=== PATIENT | male | born 1955 | race Hispanic/Latino ===

== ENCOUNTER 2019-04-02 01:36 | Inpatient (IN) | payer OTHER ==
[2019-04-02 02:39] LABS: #Eosinphils 0.3 thou/uL (0.0-0.7); #Lymphocytes 2.4 thou/uL (1.20-3.40); #Monocytes 0.6 thou/uL (0.11-0.59); #Neutrophils 3.7 thou/uL (1.40-6.50); %Basophils 0.2 % (0.0-1.0); %Eosinophils 4.9 % (0.0-10.0); %Lymphocytes 33.9 % (21.0-51.0); %Neutrophils 52.1 % (42.0-75.0); Hemoglobin 13.1 g/dL (14.0-18.0); Mean Corpuscular Hemoglobin 26.7 pg (27.0-31.0); Mean Corpuscular Volume 80.9 fL (78.0-98.0); Mean Platelet Volume 8.2 fL (7.4-10.4); Platelet Count 211 thou/uL (130-400); RBC Distribution Width 13.7 % (11.5-14.5); Red Blood Cell (RBC) Count 4.89 mill/uL (4.70-6.10); White Blood Cell (WBC) Count 7.1 thou/uL (4.8-10.8)
[2019-04-02 03:00] LABS: CRP (Inflammatory) 2.23 mg/dL (= or < 0.5)
[2019-04-02 03:01] LABS: ALT (SGPT) 28 U/L (8-55); AST (SGOT) 19 U/L (5-34); Albumin 3.8 g/dL (3.4-4.8); Alkaline Phosphatase 107 U/L (40-110); Anion Gap 14 mmol/L (10-20); BUN (Urea Nitrogen) 14 mg/dL (8.4-25.7); Bilirubin, Total 0.3 mg/dL (0.2-1.2); Calc. Creatinine Clearance 0 mL/min (70-130); Calcium 9.5 mg/dL (7.8-10.44); Carbon Dioxide 24 mmol/L (23-31); Chloride 102 mmol/L (98-107); Estimated GFR-MDRD 83; Globulin 4.3 g/dL (2.4-3.5); Glucose 221 mg/dL (80-115); Potassium 3.7 mmol/L (3.5-5.1); Protein, Total 8.1 g/dL (5.8-8.1); Sodium 136 mmol/L (136-145)
[2019-04-02] MEDS ORDERED: Cefepime 2 GM VIAL ONE (04:56)
[2019-04-02 05:16] LABS: Bilirubin Negative (Negative); Blood, Urine 1+ (Negative); Clarity Extra Turbid (Clear); Glucose, Urine (Dipstick) Greater than 1000 mg/dL (Negative); Leukocyte 500 Leu/uL (Negative); Nitrite 2+ (Negative); Protein, Urine (Dipstick) 50 mg/dL (Neg-Trace); Urobilinogen Normal mg/dL (Less than 2)
[2019-04-02 05:17] LABS: Bacteria/HPF 4+ HPF (None Seen); Squamous Epithelial 0-3 HPF (0-3); Trichomonas/HPF None Seen HPF (None Seen); WBC/HPF 21-50 HPF (0-3); Yeast-Budding None Seen HPF (None Seen)
--- NOTE | 2019-04-02 08:27 | CT ---
PRELIMINARY REPORT/[facility]/EMERGENCY AFTER HOURS PROCEDURE: PROCEDURE INFORMATION: Exam: CT Abdomen And Pelvis With Contrast Exam date and time: 04/02/2019 3:12 AM Clinical history: 64 years old, male; Abdominal pain; Patient HX: Er 4. EMS reports abd pain to bilat eral hip and lower back. PT reports that his abd pain started a few days ago. HX colostomy and hernia . PT states that it is painful to have a bm and "it takes too long to go. " PT reports decreased bm. PT reports that he vomited yesterday. PT reports that feces is "darker and more watery". TECHNIQUE: Imaging protocol: Computed tomography of the abdomen and pelvis with intravenous contrast. COMPARISON: No relevant prior studies available. FINDINGS: Liver: Normal attenuation. No mass. Gallbladder and bile ducts: The gallbladder has been surgically removed. Pancreas: Normal. No ductal dilation. Spleen: No splenomegaly. No masses Adrenals: Normal. No mass. Kidneys and ureters: Bilateral staghorn calculi left greater than right. Gas within the left-sided co llecting system Left renal cortical thinning with small cortical defects. Stomach and bowel: Small focal area of irregular eccentric wall thickening in the distal sigmoid colo n could just represent acute fold. This is best appreciated on axial image 75. Left anterior abdomina l wall colostomy with significant amounts of small bowel and mesenteric fat extending through the sto ma. No evidence of inflammatory change or incarceration. Retained fecal retention in the rectosigmoid colon. Appendix: No evidence of appendicitis. Intraperitoneal space: No free air. No significant fluid collection. Vasculature: Unremarkable. No abdominal aortic aneurysm. Lymph nodes: No enlarged lymph nodes. Bladder: Suprapubic Law catheter in a decompressed bladder. Reproductive: Unremarkable as visualized. Bones/joints: Osteopenia. Soft tissues: Fat containing umbilical hernia. IMPRESSION: 1. 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 Moderate-sized right staghorn calculus. 2. Left anterior abdominal wall colostomy with extensive mesenteric and small bowel herniation throug h the stoma. No evidence of incarceration or inflammatory change 3. Suprapubic Law catheter in a decompressed bladder with wall thickening. Please evaluate for cyst itis. 4. There are additional nonemergent findings discussed in the body of the report. Thank you for allowing us to participate in the care of your patient. Dictated and Authenticated by: Norman Gongora MD 04/02/2019 3:35 AM Central Time ([place] & [place]) FINAL REPORT CT ABDOMEN AND PELVIS WITH IV CONTRAST: I agree with the preliminary report given by Dr. Norman Gongora of [facility]. POS: OFF
[2019-04-02] MEDS ORDERED: FLU VACC QS2019-20(6MOS UP)/PF 60 MCG/0.5 ML SYRINGE IM ONE (12:15)
[2019-04-02] MEDS ORDERED: ISOVUE-370 76%-LOCM 1 ML ONE (13:40)
[2019-04-02] MEDS ORDERED: Bisacodyl 5 MG TAB PO PRN (16:04)
[2019-04-02] MEDS ORDERED: Acetaminophen 650 MG Suppository PR PRN (16:04)
[2019-04-02] MEDS ORDERED: Artificial Tears 18 DROP/0.9 ML EA EYE PRN (16:10)
[2019-04-02] MEDS ORDERED: Dextrose 5% in Water 1,000 ML IV PRN (16:21)
[2019-04-02] MEDS ORDERED: HumaLOG 300 UNITS/3 ML VIAL SC PRN (16:21)
[2019-04-02] MEDS ORDERED: Dextrose 50% Abboject 50 ML SYRINGE SLOW IVP PRN (16:21)
--- NOTE | 2019-04-02 17:07 | HP ---
PRIMARY CARE PROVIDER: Carlos Fang MD CHIEF COMPLAINT: Abdominal pain. HISTORY OF PRESENT ILLNESS: Mr. Tian is a pleasant 64-year-old gentleman who was seen at [facility] on April 02, 2019, for abdominal pain. He was transferred here from [facility]. The patient reports that he has had diffuse abdominal pain, on and off, over the last 1 week. He reports vomiting yesterday. He denies any fevers. He denies any urinary symptoms. He describes the pain as a burning sensation across his lower abdomen, 8 to 9/10 at its worst. He also reports that he had diarrhea over the last couple of weeks ago, but has not had a bowel movement over the last 4 days. REVIEW OF SYSTEMS: All systems were reviewed and found to be negative except for the pertinent positives mentioned above. PAST MEDICAL HISTORY: Peripheral vascular disease, muscle spasm, atrial fibrillation, gastroesophageal reflux disease, anemia, hernia, dyslipidemia, hypertension, and diabetes mellitus. PAST SURGICAL HISTORY: Urostomy, bilateral above-knee amputation, colostomy. PSYCHIATRIC HISTORY: Depression. SOCIAL HISTORY: The patient denies current tobacco use, alcohol use, or recreational drug use. FAMILY HISTORY: No family history of premature coronary artery disease. ALLERGIES: NO KNOWN DRUG ALLERGIES. CURRENT MEDICATIONS: 1. Acetaminophen 650 mg every 6 hours as needed. 2. Artificial Tears as needed. 3. Lipitor 40 mg at bedtime. 4. Baclofen 20 mg daily. 5. Docusate 100 mg 2 times a day. 6. Empagliflozin/metformin 10/999 mg tablet, two tablets daily. 7. Ferrous sulfate 325 mg 2 times a day. 8. Levemir insulin 20 units 2 times a day. 9. Milk of magnesia p.r.n. 10. Sotalol 80 mg daily. PHYSICAL EXAMINATION: GENERAL: Mr. Tian is awake and alert, not in acute distress. VITAL SIGNS: Blood pressure is 117/72, pulse 61, respiratory rate 14, and oxygen saturation 98% on room air. He is afebrile. He is morbidly obese with a BMI of 59.6. EYES: No scleral icterus, no conjunctival pallor. ENT: Moist mucosal membranes. No oropharyngeal erythema or exudates. NECK: Supple, nontender, trachea is midline. RESPIRATORY: Accessory muscles of breathing are not active. Chest wall movements are symmetric bilaterally. Lungs are clear to auscultation without wheeze, rhonchi, or crepitations. CARDIOVASCULAR: S1 and S2 are heard, regular. Peripheral pulses are palpable in the upper extremities. ABDOMEN: Distended. Mild suprapubic tenderness. No guarding or rigidity. No costovertebral angle tenderness. He has colostomy. He has suprapubic catheter. NEUROLOGIC: Cranial nerves 2 through 12 are intact. MUSCULOSKELETAL: He is status post bilateral above-knee amputation. SKIN: No rashes or subcutaneous nodules. LYMPHATIC: No cervical lymphadenopathy. PSYCHIATRIC: Normal mood, normal affect, the patient is oriented to person, place, and time. LABORATORY DATA: Mr. Tian's labs and investigations were reviewed. EKG showed normal sinus rhythm, no ST changes to suggest an acute coronary syndrome. 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 He also had moderate-sized right staghorn calculus. He also has left anterior abdominal wall colostomy with extensive mesenteric and small bowel herniation through the stoma, no evidence of incarceration or inflammatory change. He has normal white count, normal platelet count, normocytic anemia with hemoglobin 13.1, unremarkable comprehensive metabolic profile, normal lipase, normal troponin-I, and normal lactic acid. Urinalysis is positive for leukocyte esterase and nitrite. ASSESSMENT AND PLAN: Mr. Tian is a pleasant 64-year-old gentleman who was seen at [facility] on April 02, 2019. His problem list includes: 1. Abdominal pain: Etiology is unclear, likely secondary to urinary tract infection as well as bilateral staghorn calculi. The patient will be admitted to the hospital for further management. 2. Urinary tract infection: The patient has been started on cefepime, which I will continue. We will follow urine culture. 3. Staghorn calculi: Urology Service has been consulted, we will await opinion and help with management. 4. Diabetes mellitus: We will start Accu-Cheks and insulin sliding scale. We will continue metformin and empagliflozin. The patient is currently n.p.o., we will decrease his Levemir dose to half to account for basal metabolic needs. 5. Dyslipidemia: Continue atorvastatin. Many thanks for allowing me to participate in your patient's care. Please feel free to contact me with any questions or concerns. LEVEL OF RISK: Moderate. LEVEL OF COMPLEXITY: Moderate. Job ID: [id number]
[2019-04-02] MEDS: Sodium Chloride 0.9% 1,000 ML IV SCH ×2 (17:14→18:09)
[2019-04-02 17:33] LABS: Hemoglobin A1c 8.3 % (4.0-6.0)
[2019-04-02] MEDS: metFORMIN 500 MG TAB PO SCH (18:09)
[2019-04-02] MEDS: Cefepime 2 GM in Sodium Chloride 0.9% 100 ML IVPB SCH (20:29)
[2019-04-02] MEDS: Docusate 100 MG CAP PO SCH (20:29)
[2019-04-02] MEDS: Atorvastatin Calcium 40 MG TAB PO SCH (20:30)
[2019-04-02] MEDS: Ferrous Sulfate 325 MG TAB PO SCH (20:30)
[2019-04-02] MEDS ORDERED: Non-Formulary Item 1 EACH (Insulin Detemir [Levemir] 10 UNITS) SQ SCH (21:00)
[2019-04-02] MEDS ORDERED: Insulin Glargine 10 UNITS in Pre-Filled Syringe 1 EACH SC SCH (21:00)
--- NOTE | 2019-04-03 02:19 | CON ---
DATE OF CONSULTATION: 04/02/2019 CONSULTING PHYSICIAN: Dr. Gonzalez, consulted Dr. James. REASON FOR CONSULTATION: Nephrolithiasis. HISTORY OF PRESENT ILLNESS: Mr. Tian is a 64-year-old male with history of poorly-controlled diabetes with bilateral AKA. He was admitted to the hospital today for abdominal pain and generalized malaise. He had reported diffuse abdominal pain off and on over the past week with some vomiting and gastrointestinal upset. He did not have any fevers and did not have any sensation of bladder spasms. He does not urinate, but instead has a suprapubic catheter, which was apparently placed at the [facility] several years ago. Most of his pain was on his lower abdomen. He did not really report any significant back or flank pain. He was admitted to the hospital for treatment, where he underwent a CT scan, which demonstrated bilateral branched calculi with a staghorn calculus on the left and a long branched calculus on the right. I was consulted for further assistance on this. On my discussion with the patient, he reports that again he is not having significant flank pain. He has no history of kidney stones. He has had a suprapubic catheter placed by a urologist at the [facility], although he does not remember the name. He states that his bladder stopped working, because of his diabetes and he has had the suprapubic catheter since then. This is currently being changed by home health. His diabetes is not well controlled. He isn't aware of having recurrent urinary tract infections. He is currently on cefepime while here in the hospital. PAST MEDICAL HISTORY: 1. Peripheral vascular disease. 2. Spastic muscles. 3. Atrial fibrillation. 4. Gastroesophageal reflux disease. 5. Anemia. 6. Large parastomal hernia. 7. Dyslipidemia. 8. Hypertension. 9. Diabetes mellitus type 2. PAST SURGICAL HISTORY: 1. Suprapubic catheter placement. 2. Bilateral above knee amputation. 3. Colostomy. FAMILY HISTORY: Significant for diabetes, otherwise noncontributory. SOCIAL HISTORY: The patient denies tobacco use, alcohol use, or illicit drug use. REVIEW OF SYSTEMS: A 12-point review of systems reviewed and negative other than what was commented on the HPI. Of note, the patient's diabetes is poorly controlled and he states his blood sugars normally run around 230 to 250. HOME MEDICATIONS: 1. Tylenol. 2. Artificial Tears. 3. Lipitor. 4. Baclofen. 5. Docusate. 6. Empagliflozin/metformin. 7. Ferrous sulfate. 8. Levemir insulin. 9. Milk of magnesia. 10. Sotalol. PHYSICAL EXAMINATION: VITAL SIGNS: Temperature 97.1, pulse 54, respirations 14, blood pressure , saturation 98% on room air. GENERAL: No apparent distress. He is alert, morbidly obese, otherwise conversant, communicating well. HEENT: Normocephalic, atraumatic. Pupils are symmetric and round. Trachea midline. Moist mucous membranes. CARDIOVASCULAR: Irregularly regular rhythm. Normal S1, S2 with symmetric pulses. CHEST: No increased work of breathing. Distant breath sounds. Clear anteriorly. ABDOMEN: Soft, tender to palpation in the suprapubic area around the area of the hernia, although no rebound, guarding, or peritoneal signs. There is a large parastomal hernia located next to the left-sided colostomy with a well-healed midline incision. SP tube is currently in place approximately 26-English catheter draining clear yellow urine. EXTREMITIES: Bilateral BKAs with well-healed stump sites. Upper extremities otherwise normal. SKIN: Warm and dry. No rashes or lesions. Good turgor. There is apparently a healed sacral decubitus on his backside, which I was not able to assess given the patient's limited mobility. MUSCULOSKELETAL: No obvious joint deformities or joint erythema noted of the upper extremities. PSYCHIATRIC: Alert and oriented x3. Appropriate mood and affect. LABORATORY EVALUATION: A full set of labs are in the [facility] system, which I have reviewed. Of note, the patient's white count is 7.1 with a creatinine of 0.92, blood sugars 221. Troponins are negative. 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 Moderate-sized right staghorn calculus. Left anterior abdominal wall colostomy with extensive mesenteric and small bowel herniation through the stoma without evidence of incarceration or inflammatory changes. There is a suprapubic catheter in place with bladder wall thickening and a decompressed bladder. There is no evidence of hydronephrosis. 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 He has no elevated white count. Does not appear toxic or ill at this time. At the current time, I do not think any additional intervention is necessary from a procedural based standpoint. Nephrostomy tubes while they could be place would be challenging and difficult, may increase the risk for infection at the current time given the patient's poorly controlled diabetes. If the patient does become more ill-appearing or toxic, he may require ureteral stents for nephrostomy tubes at that time, if there is evidence for decline. In the meantime, I would recommend continuation of broad-spectrum antibiotics, which cefepime should be appropriate and await urine cultures, so long as the patient has improvement in his symptom, I would continue the current medical regimen. I do suspect that his abdominal pain is probably coming from either a lower urinary tract infection or possible referred pain from the patient's malrotated displaced kidneys, which may be causing anterior abdominal pain to some extent. His hernia does appear to be somewhat sensitive, although I am not sure that this is the source of the pain given the chronic nature. At the current time, I would not plan any further intervention other than continuation of his current medical regimen. I will continue to follow closely. I would recommend continuation and monitoring of his white blood cell count and if this rises, we may consider ureteral stent placement. Otherwise, for now, we will plan for continued observation. I will follow along and make recommendations of when the patient should be appropriate for discharge. Ultimately, the patient will require percutaneous nephrolithotomy on the left. He maybe able to undergo a ureteroscopy on the right. We will discuss this later as the patient needs to get his diabetes under better control first before we plan any further intervention and he would probably also need a cardiac clearance before any major surgery given his poorly-controlled health issues. Job ID: [id number]
[2019-04-03 05:26] LABS: #Eosinphils 0.3 thou/uL (0.0-0.7); #Lymphocytes 1.4 thou/uL (1.20-3.40); #Monocytes 0.5 thou/uL (0.11-0.59); #Neutrophils 3.2 thou/uL (1.40-6.50); %Basophils 0.5 % (0.0-1.0); %Eosinophils 6.1 % (0.0-10.0); %Lymphocytes 26.1 % (21.0-51.0); %Monocytes 8.7 % (0.0-10.0); %Neutrophils 58.7 % (42.0-75.0); Hemoglobin 12.1 g/dL (14.0-18.0); Mean Corpuscular HGB CONC 33.3 g/dL (32.0-36.0); Mean Corpuscular Hemoglobin 27.6 pg (27.0-31.0); Mean Corpuscular Volume 82.7 fL (78.0-98.0); Mean Platelet Volume 8.3 fL (7.4-10.4); Platelet Count 178 thou/uL (130-400); RBC Distribution Width 13.7 % (11.5-14.5); Red Blood Cell (RBC) Count 4.38 mill/uL (4.70-6.10); White Blood Cell (WBC) Count 5.5 thou/uL (4.8-10.8)
[2019-04-03] MEDS: Sodium Chloride 0.9% 1,000 ML IV SCH ×2 (05:28→22:01)
[2019-04-03 05:43] LABS: Anion Gap 10 mmol/L (10-20); BUN (Urea Nitrogen) 9 mg/dL (8.4-25.7); Calc. Creatinine Clearance 118 mL/min (70-130); Calcium 8.3 mg/dL (7.8-10.44); Carbon Dioxide 25 mmol/L (23-31); Chloride 106 mmol/L (98-107); Estimated GFR-MDRD Greater than 90; Glucose 189 mg/dL (80-115); Potassium 3.9 mmol/L (3.5-5.1); Sodium 137 mmol/L (136-145)
[2019-04-03] MEDS: Docusate 100 MG CAP PO SCH ×2 (08:51→20:25)
[2019-04-03] MEDS: Ferrous Sulfate 325 MG TAB PO SCH ×2 (08:51→20:25)
[2019-04-03] MEDS: Baclofen 10 MG TAB PO SCH (08:51)
[2019-04-03] MEDS: Sotalol HCl 80 MG TAB PO SCH (08:51)
[2019-04-03] MEDS: metFORMIN 500 MG TAB PO SCH ×2 (08:51→16:09)
[2019-04-03] MEDS: Cefepime 2 GM in Sodium Chloride 0.9% 100 ML IVPB SCH ×2 (08:53→20:24)
[2019-04-03] MEDS: Insulin Glargine 20 UNITS in Pre-Filled Syringe 1 EACH SC SCH ×2 (09:17→20:25)
[2019-04-03] MEDS ORDERED: Bisacodyl 5 MG TAB PO SCH (10:15)
[2019-04-03 15:04] VITALS: BMI 59.5
--- NOTE | 2019-04-03 16:53 | PDOC.HOSPP ---
- Subjective Encounter Date: 04/03/19 Encounter Time: 09:00 Subjective: Pt seen for followup re: emphysematous pyelitis. Feels better today. - Objective Vital Signs & Weight: Vital Signs (12 hours) Temp Pulse Resp BP Pulse Ox 04/03/19 08:55 100 04/03/19 07:27 97.7 F 60 18 131/80 100 Weight Admit Weight 195 lb 3 oz Weight 195 lb 3 oz I&O: 04/02/19 04/03/19 04/04/19 06:59 06:59 06:59 Intake Total 2360 Output Total 3400 Balance -1040 Result Diagrams: 04/03/19 04:47 04/03/19 04:47 Additional Labs: Accuchecks 04/03/19 04/03/19 04/03/19 16:17 11:08 05:33 POC Glucose 163 H 168 H 209 H 04/02/19 19:57 POC Glucose 176 H Labs and MARs reviewed by ut Hospitalist ROS - Review of Systems Gastrointestinal: reports: constipation. denies: nausea, vomiting, abdominal pain, diarrhea, melena, hematochezia Genitourinary: denies: dysuria, frequency, incontinence, hematuria, retention - Medication Medications: Active Medications Generic Name Dose Route Start Last Admin Trade Name Freq PRN Reason Stop Dose Admin Atorvastatin Calcium 40 mg 04/02/19 21:00 04/02/19 20:30 Lipitor PO 40 mg HS COSTA Administration Baclofen 20 mg 04/03/19 09:00 04/03/19 08:51 Lioresal PO 20 mg DAILY COSTA Administration Docusate Sodium 100 mg 04/02/19 21:00 04/03/19 08:51 Colace PO 100 mg BID COSTA Administration Ferrous Sulfate 325 mg 04/02/19 21:00 04/03/19 08:51 Feosol PO 325 mg BID COSTA Administration Cefepime HCl 2 gm/ Sodium 100 mls @ 200 mls/hr 04/02/19 21:00 04/03/19 08:53 Chloride IVPB 100 mls Q12HR COSTA Administration Sodium Chloride 1,000 mls @ 70 mls/hr 04/02/19 16:15 04/03/19 05:28 Normal Saline 0.9% IV 1,000 mls .[id number] COSTA Administration Insulin Glargine 20 units/ 0.2 mls @ 0 mls/hr 04/03/19 09:00 04/03/19 09:17 Miscellaneous Medication SC 0.2 mls BID COSTA Administration Metformin HCl 1,000 mg 04/02/19 17:00 04/03/19 16:09 Glucophage PO 1,000 mg BID-WM COSTA Administration Sotalol HCl 80 mg 04/03/19 09:00 04/03/19 08:51 Betapace PO 80 mg DAILY COSTA Administration - Exam General - other findings: Morbid obesity Eye: anicteric sclera ENT: moist mucosa Neck: supple, symmetric Heart: RRR, no rubs Respiratory: CTAB, no rales Gastrointestinal: soft, non-tender, normal bowel sounds Gastrointestinal - other findings: ostomy, suprapubic catheter Extremities - other findings: s/p vinnie AKA Psychiatric: normal affect, normal behavior Hosp A/P (1) Emphysematous pyelitis Code(s): N12 - TUBULO-INTERSTITIAL NEPHRITIS, NOT SPCF ACUTE OR CHRONIC Status: Acute (2) Staghorn calculus Code(s): N20.0 - CALCULUS OF KIDNEY Status: Acute (3) DM2 (diabetes mellitus, type 2) Status: Chronic (4) Dyslipidemia Code(s): E78.5 - HYPERLIPIDEMIA, UNSPECIFIED Status: Chronic - Plan continue antibiotics contionue cefepime, await urine cultures. Levemer dose increased to 20 units BID, pt switched to moderate insulin sliding scale. Appreciate urology service input. Continue statin. PRN Dulcolax.
[2019-04-03] MEDS: Atorvastatin Calcium 40 MG TAB PO SCH (20:25)
[2019-04-04] MEDS: Acetaminophen 325 MG TAB PO PRN ×2 (02:33→20:16)
[2019-04-04] MEDS: Sodium Chloride 0.9% 1,000 ML IV SCH ×3 (03:59→22:46)
[2019-04-04 06:11] LABS: #Eosinphils 0.3 thou/uL (0.0-0.7); #Lymphocytes 1.6 thou/uL (1.20-3.40); #Monocytes 0.5 thou/uL (0.11-0.59); #Neutrophils 3.2 thou/uL (1.40-6.50); %Basophils 0.7 % (0.0-1.0); %Eosinophils 5.4 % (0.0-10.0); %Lymphocytes 28.7 % (21.0-51.0); %Monocytes 8.4 % (0.0-10.0); %Neutrophils 56.8 % (42.0-75.0); Hemoglobin 12.6 g/dL (14.0-18.0); Mean Corpuscular HGB CONC 32.7 g/dL (32.0-36.0); Mean Corpuscular Hemoglobin 27.1 pg (27.0-31.0); Mean Corpuscular Volume 82.8 fL (78.0-98.0); Platelet Count 180 thou/uL (130-400); RBC Distribution Width 13.7 % (11.5-14.5); Red Blood Cell (RBC) Count 4.67 mill/uL (4.70-6.10); White Blood Cell (WBC) Count 5.7 thou/uL (4.8-10.8)
[2019-04-04] MEDS: HumaLOG 300 UNITS/3 ML VIAL SC PRN ×3 (06:11→17:10)
[2019-04-04 06:39] LABS: Anion Gap 11 mmol/L (10-20); BUN (Urea Nitrogen) 8 mg/dL (8.4-25.7); Calc. Creatinine Clearance 130 mL/min (70-130); Calcium 8.3 mg/dL (7.8-10.44); Carbon Dioxide 20 mmol/L (23-31); Chloride 109 mmol/L (98-107); Estimated GFR-MDRD Greater than 90; Glucose 150 mg/dL (80-115); Sodium 136 mmol/L (136-145)
[2019-04-04] MEDS: Baclofen 10 MG TAB PO SCH (09:03)
[2019-04-04] MEDS: Sotalol HCl 80 MG TAB PO SCH (09:03)
[2019-04-04] MEDS: Docusate 100 MG CAP PO SCH ×2 (09:03→20:16)
[2019-04-04] MEDS: Ferrous Sulfate 325 MG TAB PO SCH ×2 (09:03→20:16)
[2019-04-04] MEDS: metFORMIN 500 MG TAB PO SCH ×2 (09:03→17:09)
[2019-04-04] MEDS: Insulin Glargine 20 UNITS in Pre-Filled Syringe 1 EACH SC SCH (09:04)
[2019-04-04] MEDS: Cefepime 2 GM in Sodium Chloride 0.9% 100 ML IVPB SCH ×2 (09:05→20:16)
--- NOTE | 2019-04-04 11:50 | CT ---
CT STONE PROTOCOL: HISTORY: Left renal staghorn calculus with emphysematous pyelitis. Exam requested to evaluate for gas in the l eft kidney. FINDINGS: There has been mild interval reduction in the amount of gas in the left renal collecting system since 04/02/2019, currently measuring 2 x 1.5 x 0.5 cm (previously 2.4 x 2.2 x 0.8 cm). Bilateral staghorn calculi in the kidneys, left larger than right, are again seen. The remainder of the exam is otherwi se stable. IMPRESSION: Mild interval reduction in the amount of air in the left renal collecting system since 04/02/2019. POS: DEYANRIA
--- NOTE | 2019-04-04 13:21 | PDOC.HOSPP ---
- Subjective Encounter Date: 04/04/19 Encounter Time: 08:40 Subjective: Pt seen for followup re: emphysematous pyelitis. Feels better today. - Objective Vital Signs & Weight: Vital Signs (12 hours) Temp Pulse Resp BP BP Pulse Ox 04/04/19 09:03 60 118/75 04/04/19 07:44 97.7 F 60 16 118/75 97 04/04/19 04:00 97.7 F 59 L 16 122/77 100 Weight Admit Weight 195 lb 3 oz Weight 195 lb 3 oz I&O: 04/03/19 04/04/19 04/05/19 06:59 06:59 06:59 Intake Total 2360 4210 Output Total 3400 4550 Balance -1040 -340 Result Diagrams: 04/04/19 05:58 04/04/19 05:58 Additional Labs: Accuchecks 04/04/19 04/04/19 04/03/19 11:42 04:44 19:46 POC Glucose 167 H 157 H 191 H 04/03/19 16:17 POC Glucose 163 H Labs and MARs reviewed by ga Hospitalist ROS - Review of Systems Gastrointestinal: denies: nausea, vomiting, abdominal pain, diarrhea, constipation, melena, hematochezia Genitourinary: denies: dysuria, frequency, incontinence, hematuria, retention - Medication Medications: Active Medications Generic Name Dose Route Start Last Admin Trade Name Freq PRN Reason Stop Dose Admin Acetaminophen 650 mg 04/02/19 16:04 04/04/19 02:33 Tylenol PO 650 mg Q4H PRN Administration Headache/Fever/Mild Pain (1-3) Atorvastatin Calcium 40 mg 04/02/19 21:00 04/03/19 20:25 Lipitor PO 40 mg HS COSTA Administration Baclofen 20 mg 04/03/19 09:00 04/04/19 09:03 Lioresal PO 20 mg DAILY COSTA Administration Bisacodyl 10 mg 04/02/19 16:04 04/04/19 09:08 Dulcolax PO 10 mg DAILYPRN PRN Administration Constipation Docusate Sodium 100 mg 04/02/19 21:00 04/04/19 09:03 Colace PO 100 mg BID COSTA Administration Ferrous Sulfate 325 mg 04/02/19 21:00 04/04/19 09:03 Feosol PO 325 mg BID COSTA Administration Cefepime HCl 2 gm/ Sodium 100 mls @ 200 mls/hr 04/02/19 21:00 04/04/19 09:05 Chloride IVPB 100 mls Q12HR COSTA Administration Sodium Chloride 1,000 mls @ 70 mls/hr 04/02/19 16:15 04/04/19 03:59 Normal Saline 0.9% IV 1,000 mls .[id number] COSTA Administration Insulin Glargine 20 units/ 0.2 mls @ 0 mls/hr 04/03/19 09:00 04/04/19 09:04 Miscellaneous Medication SC 0.2 mls BID COSTA Administration Insulin Human Lispro 0 units 04/03/19 10:04 04/04/19 06:11 Humalog SC 2 unit .MODERATE SLIDING SC PRN Administration Moderate Correctional Scale Metformin HCl 1,000 mg 04/02/19 17:00 04/04/19 09:03 Glucophage PO 1,000 mg BID-WM COSTA Administration Sodium Chloride 10 ml 04/03/19 21:00 04/04/19 09:06 Flush - Normal Saline IVF Not Given Q12HR COSTA Sotalol HCl 80 mg 04/03/19 09:00 04/04/19 09:03 Betapace PO 80 mg DAILY OCSTA Administration - Exam General - other findings: Morbid obesity Eye: anicteric sclera ENT: moist mucosa Neck: supple, no JVD Heart: RRR, no rubs Respiratory: CTAB, no ronchi Gastrointestinal: soft, non-tender Extremities - other findings: s/p vinnie AKA Psychiatric: normal affect, normal behavior Hosp A/P (1) Emphysematous pyelitis Code(s): 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 Increase lantus to 25 units BID, continue moderate insulin sliding scale. Continue statin. PRN Dulcolax.
[2019-04-04] MEDS ORDERED: Enoxaparin Sodium 40 MG/0.4 ML SYRINGE SC SCH (13:30)
[2019-04-04] MEDS ORDERED: Insulin Glargine 5 UNITS in Pre-Filled Syringe SC SCH (13:30)
[2019-04-04] MEDS: Atorvastatin Calcium 40 MG TAB PO SCH (20:16)
[2019-04-04] MEDS: Insulin Glargine 25 UNITS in Pre-Filled Syringe SC SCH (20:17)
[2019-04-05 05:31] LABS: #Eosinphils 0.3 thou/uL (0.0-0.7); #Lymphocytes 1.6 thou/uL (1.20-3.40); #Monocytes 0.5 thou/uL (0.11-0.59); #Neutrophils 3.2 thou/uL (1.40-6.50); %Basophils 0.4 % (0.0-1.0); %Eosinophils 5.1 % (0.0-10.0); %Lymphocytes 29.1 % (21.0-51.0); %Monocytes 8.8 % (0.0-10.0); %Neutrophils 56.6 % (42.0-75.0); Hemoglobin 12.3 g/dL (14.0-18.0); Mean Corpuscular HGB CONC 32.1 g/dL (32.0-36.0); Mean Corpuscular Hemoglobin 26.5 pg (27.0-31.0); Mean Corpuscular Volume 82.5 fL (78.0-98.0); Platelet Count 167 thou/uL (130-400); RBC Distribution Width 13.7 % (11.5-14.5); Red Blood Cell (RBC) Count 4.63 mill/uL (4.70-6.10); White Blood Cell (WBC) Count 5.6 thou/uL (4.8-10.8)
[2019-04-05 05:43] LABS: Anion Gap 9 mmol/L (10-20); BUN (Urea Nitrogen) 7 mg/dL (8.4-25.7); Calc. Creatinine Clearance 131 mL/min (70-130); Calcium 8.4 mg/dL (7.8-10.44); Carbon Dioxide 23 mmol/L (23-31); Chloride 109 mmol/L (98-107); Estimated GFR-MDRD Greater than 90; Glucose 142 mg/dL (80-115); Sodium 137 mmol/L (136-145)
[2019-04-05] MEDS: Ferrous Sulfate 325 MG TAB PO SCH ×2 (08:23→20:19)
[2019-04-05] MEDS: metFORMIN 500 MG TAB PO SCH ×2 (08:23→16:46)
[2019-04-05] MEDS: Baclofen 10 MG TAB PO SCH (08:23)
[2019-04-05] MEDS: Docusate 100 MG CAP PO SCH ×2 (08:23→20:20)
[2019-04-05] MEDS: Cefepime 2 GM in Sodium Chloride 0.9% 100 ML IVPB SCH (08:24)
[2019-04-05] MEDS: Enoxaparin Sodium 40 MG/0.4 ML SYRINGE SC SCH (08:24)
[2019-04-05] MEDS: Insulin Glargine 25 UNITS in Pre-Filled Syringe SC SCH ×2 (10:16→20:20)
[2019-04-05] MEDS ORDERED: Ciprofloxacin 500 MG TAB PO SCH (11:45)
[2019-04-05] MEDS: Sotalol HCl 80 MG TAB PO SCH (12:03)
[2019-04-05] MEDS: Sodium Chloride 0.9% 1,000 ML IV SCH (15:22)
--- NOTE | 2019-04-05 15:51 | PRG ---
DATE OF SERVICE: 04/05/2019 SUBJECTIVE: The patient states he is doing fine. He is not really complaining of any significant pain. He has very minimal discomfort in his back. He otherwise has appeared nontoxic, feeling well without any signs or symptoms of severe infection, pyelonephritis, or emphysematous pyelitis. OBJECTIVE: VITAL SIGNS: Temperature 98.4, pulse 60, respirations 17, blood pressure 146/89, and saturation 100% on room air. GENERAL: No apparent distress. He is alert. CARDIOVASCULAR: Regular rate and rhythm. Normal S1 and S2. CHEST: No increased work of breathing. Symmetric expansion of the lungs. ABDOMEN: Soft, nontender, and nondistended. Large parastomal hernia with colostomy on the left. : Suprapubic catheter in place, draining clear yellow urine. EXTREMITIES: There are bilateral AKAs. Upper extremities otherwise normal with full range of motion. LABORATORY DATA: On laboratory evaluation, the full set of labs in the [facility] system, which I have reviewed. Of note, the patient's white count 5.6, hemoglobin 12.3, and platelet count of 167. Creatinine is currently 0.73. INTERVAL IMAGING: The patient had a repeat CT scan, which shows reduction in the size of gas present within the left renal collecting system, which is getting better. It is questionable whether this is truly customer service representative of emphysematous pyelitis as the patient is nontoxic appearing with absolutely no white blood cell count. The patient again has bilateral nephrolithiasis with a staghorn on the left and linear large stone on the right. 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 I have spoken with Dr. Swanson regarding this patient's imaging and coordinated care with him to discuss whether or not a percutaneous nephrostomy tube would be amendable to be placed. Dr. Swanson feels that he may be able to get an adequate access in the upper pole for PCNL. I will go and make orders for an upper pole access on the left for PCNL on that side. If this is successful, then we can take the patient for a PCNL next week. I went over the surgery in detail with the patient including how the procedure is done, postoperative recovery, and risks, which include, but are not limited to, significant bleeding or hemorrhage, worsening infection, incomplete stone removal, damage to the kidney, ureteral strictures, intracalyceal infundibular strictures, damage to the kidney, possible loss of the kidney and even . The patient understands these risks and states he would be willing to go forward to get the stones out. I did tell him there was probably a very high chance that I would not get all the stone out. Given the large size of the stone, we should be able to clear the vast majority of it and then subsequently do a ureteroscopy a few weeks later to clear out the remaining fragments. He states he is fine with the plan. We will have this done tomorrow. We will make him n.p.o. after midnight. Get coags and the patient will need to remain on antibiotic therapy at least until his surgery, which we will plan for next . Job ID: [id number]
[2019-04-05 16:23] LABS: Prothrombin Time 13.4 SEC (12.0-14.7)
--- NOTE | 2019-04-05 16:26 | PDOC.HOSPP ---
- Subjective Encounter Date: 04/05/19 Encounter Time: 08:40 Subjective: Pt seen for followup re: emphysematous pyelitis. No complaints today. - Objective Vital Signs & Weight: Vital Signs (12 hours) Temp Pulse Resp BP BP Pulse Ox 04/05/19 12:03 60 146/89 H 04/05/19 08:37 100 04/05/19 07:00 98.4 F 59 L 17 146/89 H 100 Weight Admit Weight 195 lb 3 oz Weight 195 lb 3 oz I&O: 04/04/19 04/05/19 04/06/19 06:59 06:59 06:59 Intake Total 4210 720 1740 Output Total 4550 350 3650 Balance -340 370 -1910 Result Diagrams: 04/05/19 05:09 04/05/19 05:09 Additional Labs: Accuchecks 04/05/19 04/05/19 04/04/19 12:02 04:16 20:15 POC Glucose 123 H 135 H 134 H Labs and MARs reviewed by de Hospitalist ROS - Review of Systems Cardiovascular: denies: chest pain, palpitations, orthopnea, paroxysmal noc. dyspnea, edema, light headedness Gastrointestinal: denies: nausea, vomiting, abdominal pain, diarrhea, constipation, melena, hematochezia - Medication Medications: Active Medications Generic Name Dose Route Start Last Admin Trade Name Freq PRN Reason Stop Dose Admin Acetaminophen 650 mg 04/02/19 16:04 04/04/19 20:16 Tylenol PO 650 mg Q4H PRN Administration Headache/Fever/Mild Pain (1-3) Atorvastatin Calcium 40 mg 04/02/19 21:00 04/04/19 20:16 Lipitor PO 40 mg HS COSTA Administration Baclofen 20 mg 04/03/19 09:00 04/05/19 08:23 Lioresal PO 20 mg DAILY COSTA Administration Bisacodyl 10 mg 04/02/19 16:04 04/04/19 09:08 Dulcolax PO 10 mg DAILYPRN PRN Administration Constipation Docusate Sodium 100 mg 04/02/19 21:00 04/05/19 08:23 Colace PO 100 mg BID COSTA Administration Enoxaparin Sodium 40 mg 04/05/19 09:00 04/05/19 08:24 Lovenox SC 40 mg 0900 COSTA Administration Ferrous Sulfate 325 mg 04/02/19 21:00 04/05/19 08:23 Feosol PO 325 mg BID COSTA Administration Sodium Chloride 1,000 mls @ 70 mls/hr 04/02/19 16:15 04/05/19 15:22 Normal Saline 0.9% IV 1,000 mls .[id number] COSTA Administration Insulin Glargine 25 units/ 0.25 mls @ 0 mls/hr 04/04/19 21:00 04/05/19 10:16 Miscellaneous Medication SC 0.25 mls BID COSTA Administration Insulin Human Lispro 0 units 04/03/19 10:04 04/04/19 17:10 Humalog SC 6 unit .MODERATE SLIDING SC PRN Administration Moderate Correctional Scale Metformin HCl 1,000 mg 04/02/19 17:00 04/05/19 08:23 Glucophage PO 1,000 mg BID-WM COSTA Administration Sodium Chloride 10 ml 04/03/19 21:00 04/05/19 08:27 Flush - Normal Saline IVF 10 ml Q12HR COSTA Administration Sotalol HCl 80 mg 04/03/19 09:00 04/05/19 12:03 Betapace PO 80 mg DAILY COSTA Administration - Exam General - other findings: Morbidly obese Eye: anicteric sclera ENT: moist mucosa Neck: supple Heart: RRR Respiratory: CTAB Gastrointestinal: soft, non-tender Extremities: no cyanosis, no clubbing Skin: no lesions Neurological: no weakness Psychiatric: normal affect, normal behavior Hosp A/P (1) Emphysematous pyelitis Code(s): N12 - TUBULO-INTERSTITIAL NEPHRITIS, NOT SPCF ACUTE OR CHRONIC Status: Acute (2) Staghorn calculus Code(s): N20.0 - CALCULUS OF KIDNEY Status: Acute (3) DM2 (diabetes mellitus, type 2) Status: Chronic (4) Dyslipidemia Code(s): E78.5 - HYPERLIPIDEMIA, UNSPECIFIED Status: Chronic - Plan continue antibiotics Switch antibiotic to oral ciprofloxacin. Improved control of blood sugars. Will continue statin. Continue PRN Dulcolax (last BM was yesterday).
[2019-04-05] MEDS: Ciprofloxacin 500 MG TAB PO SCH (20:18)
[2019-04-05] MEDS: Atorvastatin Calcium 40 MG TAB PO SCH (20:19)
[2019-04-05] MEDS: Acetaminophen 325 MG TAB PO PRN (20:20)
[2019-04-06] MEDS: Ciprofloxacin 500 MG TAB PO SCH ×2 (05:22→20:54)
[2019-04-06] MEDS: Sodium Chloride 0.9% 1,000 ML IV SCH ×2 (05:24→21:00)
[2019-04-06] MEDS: Sotalol HCl 80 MG TAB PO SCH (08:25)
[2019-04-06] MEDS: Enoxaparin Sodium 40 MG/0.4 ML SYRINGE SC SCH (08:25)
[2019-04-06] MEDS: metFORMIN 500 MG TAB PO SCH ×2 (08:25→17:16)
[2019-04-06] MEDS: Baclofen 10 MG TAB PO SCH (08:26)
[2019-04-06] MEDS: Docusate 100 MG CAP PO SCH ×2 (08:26→20:55)
--- NOTE | 2019-04-06 11:58 | SPC ---
EXAM: [facility] [place] NEPHROS CATH NEW ACCESS PROVIDED CLINICAL HISTORY: Staghorn left renal calculus. COMPARISON: None TECHNIQUE: The procedure including the risks and complications were explained to the patient, and informed conse nt was obtained. Patient was placed on the angiography table in the prone position. Staghorn left renal calculus was localized. An area overlying the superior pole left renal calculus was marked, and the area was then meticulously prepped and draped in usual sterile fashion. Skin and subcutaneous tissues were infiltrated with buffered 1% lidocaine for local anesthesia. A 22-gauge needle was advan miguel towards the superior pole left renal calculus. At this time, the patient began having significant involuntary spasms which resulted in significant displacement of the left renal calculus in relation to the position of the needle. The patient's spasms persisted for 10 minutes without improvement. Persistent spasms resulting in significant changes in renal position of the staghorn alycia culus precludes access of the collecting system at this time. Needle was removed, and hemostasis was achieved with direct pressure. Dry sterile dressing was placed. The patient tolerated the procedu re well and without immediate complication. Fluoroscopy: Time-4 minutes, dose 29,349 mGy centimeter squared. IMPRESSION: 1. Left renal staghorn calculus. 2. Unsuccessful attempt at accessing the left renal collecting system based on significant involuntar y spasms by the patient which results in difficulty in needle placement at this time. Findings will be discussed with Dr. James.
[2019-04-06] MEDS: Ferrous Sulfate 325 MG TAB PO SCH ×2 (12:21→20:55)
[2019-04-06] MEDS: Insulin Glargine 25 UNITS in Pre-Filled Syringe SC SCH ×2 (12:22→20:56)
--- NOTE | 2019-04-06 15:04 | PRG ---
DATE OF SERVICE: 04/06/2019 SUBJECTIVE: The patient states he is feeling fine. He is having a little bit of soreness on his left flank from attempted nephrostomy tube placement. He did go down to Interventional Radiology, where Dr. Swanson attempted to place a nephrostomy tube. Unfortunately every time the needle was passed to approach the kidney, the patient was having involuntary muscle contractions resulting in significant displacement of the kidney, which precluded any type of entry into the kidney. As such Dr. Swanson was not able to place a nephrostomy tube, so the procedure was aborted and the patient has come back up to the floor. OBJECTIVE: VITAL SIGNS: Temperature 98.2, pulse 98, respirations 16, blood pressure 126/72, saturation 98% on room air. GENERAL: No apparent distress. Communicative and alert. CARDIOVASCULAR: Regular rate and rhythm. Normal S1 and S2. ABDOMEN: Soft, nontender, and nondistended. Positive bowel sounds. Large parastomal hernia next to his colostomy site. SP tube in good location, draining clear yellow urine. EXTREMITIES: Bilateral AKA. Upper extremities, normal. ASSESSMENT AND PLAN: A 64-year-old white male with complicated urinary tract infection with gas in the collecting system, although with improvement on antibiotics. The patient has been transitioned to p.o. ciprofloxacin with decrease in his white count and no toxic effects. He seems to be doing well. Attempts at nephrostomy tube placement here were unsuccessful. Therefore, we will probably not be able to do a PCNL at our facility. I would probably recommend that this patient go to a tertiary care center, [facility] in [place] would be the ideal location with Dr. Rosales, who was extremely adept at handling complex kidney stone cases. Additional options include [facility] at [place] or [facility] at [place]. We can handle this on an outpatient basis, but for the current time, I do not think the patient probably needs to stay in the hospital much longer. When he is ready to be discharged from a medical standpoint, he could be sent home and I will see him on an outpatient basis to see if we can refer him to another facility for definitive treatment of his stones, which likely will cause ongoing urinary tract infections and discomfort and possible kidney damage in the future without treatment. Job ID: [id number]
--- NOTE | 2019-04-06 18:05 | PDOC.HOSPP ---
- Subjective Encounter Date: 04/06/19 Encounter Time: 18:03 Subjective: Pt seen for followup re: UTI. Feels better, no complaints. - Objective Vital Signs & Weight: Vital Signs (12 hours) Temp Pulse Resp BP BP Pulse Ox 04/06/19 12:08 98.2 F 16 126/72 98 04/06/19 08:30 98 04/06/19 08:25 64 122/59 L 04/06/19 07:41 98.4 F 64 17 122/79 98 Weight Admit Weight 195 lb 3 oz Weight 195 lb 3 oz I&O: 04/05/19 04/06/19 04/07/19 06:59 06:59 06:59 Intake Total 720 4590 Output Total 350 5950 Balance 370 -1360 Result Diagrams: 04/05/19 05:09 04/05/19 05:09 Additional Labs: Accuchecks 04/06/19 04/06/19 04/06/19 16:28 12:14 04:25 POC Glucose 122 H 108 163 H 04/05/19 19:41 POC Glucose 104 Labs and MARs reviewed by tx Hospitalist ROS - Review of Systems Gastrointestinal: denies: nausea, vomiting, abdominal pain, diarrhea, constipation, melena, hematochezia Skin: denies: rash, lesions, den, bruising - Medication Medications: Active Medications Generic Name Dose Route Start Last Admin Trade Name Freq PRN Reason Stop Dose Admin Acetaminophen 650 mg 04/02/19 16:04 04/05/19 20:20 Tylenol PO 650 mg Q4H PRN Administration Headache/Fever/Mild Pain (1-3) Atorvastatin Calcium 40 mg 04/02/19 21:00 04/05/19 20:19 Lipitor PO 40 mg HS COSTA Administration Baclofen 20 mg 04/03/19 09:00 04/06/19 08:26 Lioresal PO 20 mg DAILY COSTA Administration Bisacodyl 10 mg 04/02/19 16:04 04/04/19 09:08 Dulcolax PO 10 mg DAILYPRN PRN Administration Constipation Ciprofloxacin 500 mg 04/05/19 20:00 04/06/19 05:22 Cipro PO Not Given 0600,1999 COSTA Docusate Sodium 100 mg 04/02/19 21:00 04/06/19 08:26 Colace PO 100 mg BID COSTA Administration Enoxaparin Sodium 40 mg 04/05/19 09:00 04/06/19 08:25 Lovenox SC Not Given 0900 COSTA Ferrous Sulfate 325 mg 04/02/19 21:00 04/06/19 12:21 Feosol PO 325 mg BID COSTA Administration Sodium Chloride 1,000 mls @ 70 mls/hr 04/02/19 16:15 04/06/19 05:24 Normal Saline 0.9% IV 1,000 mls .[id number] COSTA Administration Insulin Glargine 25 units/ 0.25 mls @ 0 mls/hr 04/04/19 21:00 04/06/19 12:22 Miscellaneous Medication SC 0.25 mls BID COSTA Administration Insulin Human Lispro 0 units 04/03/19 10:04 04/04/19 17:10 Humalog SC 6 unit .MODERATE SLIDING SC PRN Administration Moderate Correctional Scale Metformin HCl 1,000 mg 04/02/19 17:00 04/06/19 17:16 Glucophage PO 1,000 mg BID-WM COSTA Administration Sodium Chloride 10 ml 04/03/19 21:00 04/06/19 08:26 Flush - Normal Saline IVF Not Given Q12HR COSTA Sotalol HCl 80 mg 04/03/19 09:00 04/06/19 08:25 Betapace PO 80 mg DAILY COSTA Administration - Exam General - other findings: Morbid obese Eye: anicteric sclera ENT: normocephalic atraumatic Neck: supple, no lymphadenopathy Heart: RRR Respiratory: CTAB Gastrointestinal: soft, non-tender Extremities - other findings: Bilateral AKA Psychiatric: normal affect, normal behavior Hosp A/P (1) Emphysematous pyelitis Code(s): N12 - TUBULO-INTERSTITIAL NEPHRITIS, NOT SPCF ACUTE OR CHRONIC Status: Acute (2) Staghorn calculus Code(s): N20.0 - CALCULUS OF KIDNEY Status: Acute (3) DM2 (diabetes mellitus, type 2) Status: Chronic (4) Dyslipidemia Code(s): E78.5 - HYPERLIPIDEMIA, UNSPECIFIED Status: Chronic - Plan Continue oral ciprofloxacin. Improved control of blood sugars. Continue statin. IR procedure unsuccessful. Pt awaiting insurance authorization before he can go back to [facility]
--- NOTE | 2019-04-06 20:24 | DIS ---
DATE OF ADMISSION: 04/02/2019 DATE OF DISCHARGE: 04/06/2019 PRIMARY CARE PROVIDER: Dr. Carlos Fang. DISCHARGE DIAGNOSES: 1. Emphysematous pyelitis. 2. Staghorn calculi. CONSULTS DURING THIS HOSPITALIZATION: Urology, Dr. Ori James. CONDITION OF PATIENT ON THE DAY OF DISCHARGE: Stable. I assessed Mr. Tian on the day of discharge. He denies any chest pain or shortness of breath. Vital signs are stable. S1 and S2 are heard, regular. Lungs are clear to auscultation bilaterally. DISCHARGE MEDICATIONS: Lipitor 40 mg at bedtime; baclofen 20 mg daily; Colace 100 mg 2 times a day; empagliflozin/metformin 10/999 mg tablet two tablets daily; ferrous sulfate 325 mg 2 times a day; Levemir insulin 20 units 2 times a day; sotalol 80 mg daily; ciprofloxacin 500 mg 2 times a day, to be continued until patient is seen by Urology Service for followup; Tylenol p.r.n.; Artificial Tears p.r.n.; and milk of magnesium p.r.n. FOLLOWUP APPOINTMENTS: Patient is advised to follow up with primary care provider in 3 days' time and with Urology Service in 1 week's time. HOSPITAL COURSE: Mr. Tian is a pleasant 64-year-old gentleman, who was admitted to [facility] on April 02, 2019, for emphysematous pyelitis and staghorn calculi. He was treated with intravenous antibiotics. He was seen by Urology Service. Preliminary blood cultures were negative at 48 hours. Final urine culture grew mixed skin and enteric john. Attempt was made by Interventional Radiology unsuccessfully at accessing the left renal collecting system because of significant involuntary spasms by the patient. Urology Service is therefore unable to do a PCNL at this facility. They recommended the patient go to a tertiary center. They will follow this on outpatient basis. The patient improved clinically. He is being discharged back to his nursing home facility for further management. DISCHARGE DESTINATION: [facility], from where patient was admitted to the hospital. TIME SPENT: Total amount of time spent coordinating this discharge: 32 minutes. Job ID: [id number]
[2019-04-06] MEDS: Atorvastatin Calcium 40 MG TAB PO SCH (20:55)
[2019-04-06] MEDS: Acetaminophen 325 MG TAB PO PRN (20:55)
[2019-04-07] MEDS: Ciprofloxacin 500 MG TAB PO SCH (05:00)
[2019-04-07] MEDS: Baclofen 10 MG TAB PO SCH (08:25)
[2019-04-07] MEDS: Sotalol HCl 80 MG TAB PO SCH (08:25)
[2019-04-07] MEDS: Docusate 100 MG CAP PO SCH (08:25)
[2019-04-07] MEDS: Insulin Glargine 25 UNITS in Pre-Filled Syringe SC SCH (08:25)
[2019-04-07] MEDS: Ferrous Sulfate 325 MG TAB PO SCH (08:25)
[2019-04-07] MEDS: metFORMIN 500 MG TAB PO SCH (08:25)
[2019-04-07] MEDS: Enoxaparin Sodium 40 MG/0.4 ML SYRINGE SC SCH (08:26)
[2019-04-07 11:42] VITALS: BP 116/74; TEMP 98.3
--- NOTE | 2019-04-07 11:57 | DIS ---
DATE OF ADMISSION: 04/02/2019 DATE OF DISCHARGE: 04/07/2019 PRIMARY CARE PROVIDER: Dr. Carlos Fang. DISCHARGE DIAGNOSES: 1. Emphysematous pyelitis. 2. Staghorn calculi. CONDITION OF PATIENT ON THE DAY OF DISCHARGE: Stable. I assessed Mr. Tian on the day of discharge. He denies any complaints. Vital signs are stable. S1 and S2 are heard, regular. Lungs are clear. CONSULTATIONS DURING THIS HOSPITALIZATION: Urology, Dr. Ori James. Please note that this is a discharge summary that I am dictating in addition to another discharge summary dictated on April 06, 2019. The patient could not be discharged that day because his intermediate facility could not take him back that day. The patient is being discharged on April 07, 2019. DISCHARGE MEDICATIONS: As dictated on my discharge summary dated April 06, 2019, FOLLOWUP APPOINTMENTS: Primary care provider in 3 days' time and Urology Service in 1 weeks' time. HOSPITAL COURSE: As dictated in my discharge summary dated April 06, 2019. DISCHARGE DESTINATION: [facility]. TOTAL AMOUNT OF TIME SPENT COORDINATING THIS DISCHARGE: 14 minutes. Job ID: [id number]
--- NOTE | 2019-04-10 07:00 | PQF ---
RUDY PAULSON DAVID [id number] CLINICAL DOCUMENTATION CLARIFICATION FORM: POST DISCHARGE Addendum to original discharge summary date: ____ Late entry note date: __ DATE: 04-10-2019 ATTN :Corwin Newby Please exercise your independent, professional judgment in responding to the clarification form. Clinical indicators are provided on the bottom of this form for your review Please check appropriate box(s): [x ] Acute Emphysematous Pyelitis [ ] Chronic Emphysematous Pyelitis [ ] Other diagnosis please specify [ ] Unable to determine For continuity of documentation, please document condition throughout progress notes and discharge summary. Thank You. CLINICAL INDICATORS H&P p1 04/02-The pt reports thathe has had diffuse abdominal pain, on and off, over the last 1 week H&P p3 04/02-abdominal pain etilogy unclear, likely secondary to UTI as well as bilateral staghorn calculi Consult p3 04/02-Possible emphysematous pyelitis with bilateral staghorn calculi with poorly-controlled diabetes RISK FACTORS H&P p3 04/02-Urinary tract infection H&P p3 04/02-Staghorn calculi Consult p3 04/02-Emphysematous Pyelitis TREATMENT: 04/02/19.-IV Cefepime Dr James consult 04/02-Urology Consult Consult p3 04/02-Plan for Nephrostomy (This form is maintained as a part of the permanent medical record) 2014 [employer]. All Rights Reserved Asiya [email or web address] [not provided] [email or web address]
== END 2019-04-07 11:42 | DRG 690 ==
LOC: ERS 01:36 → T4-A 06:05
PROVIDERS: ADMIT Hospitalist; ATTEND Hospitalist
PROC: 3E02340 Introduction of Influenza Vaccine into Muscle, Percutaneous Approach (ICD-10-PCS; 2019-04-02)
PROC: 0TJ53ZZ Inspection of Kidney, Percutaneous Approach (ICD-10-PCS; principal; 2019-04-06)
DX: N10 Acute pyelonephritis (principal); Z68.43 Body mass index [BMI] 50.0-59.9, adult; N20.0 Calculus of kidney; Z66 Do not resuscitate; I48.91 Unspecified atrial fibrillation; D64.9 Anemia, unspecified; E78.5 Hyperlipidemia, unspecified; I10 Essential (primary) hypertension; F32.9 Major depressive disorder, single episode, unspecified; E11.51 Type 2 diabetes mellitus with diabetic peripheral angiopathy without gangrene; E66.01 Morbid (severe) obesity due to excess calories; K21.9 Gastro-esophageal reflux disease without esophagitis; R25.2 Cramp and spasm; Z93.3 Colostomy status; Z89.612 Acquired absence of left leg above knee; Z87.891 Personal history of nicotine dependence; Z79.899 Other long term (current) drug therapy; Z79.82 Long term (current) use of aspirin; Z79.1 Long term (current) use of non-steroidal anti-inflammatories (NSAID); Z89.611 Acquired absence of right leg above knee; Z90.49 Acquired absence of other specified parts of digestive tract; Z79.4 Long term (current) use of insulin; Z23 Encounter for immunization
CPT/HCPCS: 36415; 36416; 50432; 74176; 74177; 80048; 80053; 81003; 81015; 83036; 83605; 83690; 84484; 85025; 85610; 85730; 86140; 87040; 87086; 93005; 96361; 96365; J0692; J1650; J1815; J3490; Q9966